=== PATIENT | female | born 1965 | race African-American/Black ===

== ENCOUNTER → 2021-07-20 | Day surgery (SDC) | payer OTHER ==
[~2021-07-20] VITALS: Ht 172.7 cm; Wt 67.0 kg
[~2021-07-20] MED LIST: ESTROVEN ENER400 MCG PO; IV RINGERS,LACTATED 1000ML 1,000 ML IV SCH; LIDOCAINE 2% PF 5 ML VIAL. ONE; PROPOFOL 10 MG/ML (20ML) VIAL. IV ONE
--- NOTE | 2021-07-20 07:51 | CONS ---
DATE OF CONSULTATION: 07/20/2021 UPDATED HISTORY AND PHYSICAL REFERRING PHYSICIAN: Genoveva Gordon. REASON: Rectal bleeding. HISTORY OF PRESENT ILLNESS: This is a 56-year-old female with past medical history significant for osteoarthrosis, hyperlipidemia, is seen for rectal bleeding described as being blood coating the stool, bright and dark red in nature. She noticed some bleeding after Pap and pelvic exam. Weight and appetite are stable. FAMILY HISTORY: Nonrevealing for IBD and/or colon cancer. Last colonoscopy in 2013 was significant for hemorrhoids only. With the recent event, she requests additional evaluation. PAST MEDICAL HISTORY: Hyperlipidemia. ALLERGIES: SULFA. MEDICATIONS: None. FAMILY AND SOCIAL HISTORY: Significant for hypertension in mother and sister, CVAs with the grandfather. SOCIAL HISTORY: Nonsmoker and nondrinker. PAST SURGICAL HISTORY: Status post cholecystectomy. REVIEW OF SYSTEMS: Per records. PHYSICAL EXAMINATION: GENERAL: Reveals a well-nourished, well-developed female who is alert, cooperative, no acute distress. VITAL SIGNS: Pulse 75, respiratory rate is 15, blood pressure 110/70. LUNGS: Clear. CARDIOVASCULAR: Reveals an S1, S2, without S3, S4 or appreciable murmur. ABDOMEN: Reveals a soft abdomen, normal bowel sounds, without appreciable hepatosplenomegaly. EXTREMITIES: Reveals no cyanosis, clubbing or edema. IMPRESSION AND PLAN: Rectal bleeding, etiology is to be determined. Differential includes colonic polyps, malignancy, inflammatory bowel disease, hemorrhoids, AVMs and/or fissures. Risks and benefits of procedure including risk of hemorrhage and perforation with operation were discussed. The patient is willing to proceed at this time. HAROLDO MCGRAW: Timbo TID: [id number]
[2021-07-20 08:12] VITALS: BP 115/78
== END | disposition home or self-care (01) ==
LOC: SURG 06:32
PROVIDERS: ATTEND Internal Medicine Gastroenterology
DX: K62.5 Hemorrhage of anus and rectum (principal); K64.0 First degree hemorrhoids; K63.89 Other specified diseases of intestine; E78.00 Pure hypercholesterolemia, unspecified; M19.90 Unspecified osteoarthritis, unspecified site; Z90.49 Acquired absence of other specified parts of digestive tract; Z98.890 Other specified postprocedural states; Z82.49 Family history of ischemic heart disease and other diseases of the circulatory system; Z79.899 Other long term (current) drug therapy; Z88.2 Allergy status to sulfonamides; Z88.8 Allergy status to other drugs, medicaments and biological substances
CPT/HCPCS: 45378; J2704